=== PATIENT | female | born 1950 | race Caucasian/White ===

== ENCOUNTER 2018-11-23 08:00 | Observation (INO) | payer MEDICARE ==
[~2018-11-23] VITALS: Ht 167.6 cm; Wt 83.8 kg
[2018-11-23] MEDS ORDERED: normal saline 1000ML IV soln IVB ONE (08:15)
[2018-11-23] MEDS ORDERED: aspirin 81mg tab.chew PO ONE (08:15)
[2018-11-23] MEDS ORDERED: diltiazem 5mg/ml 5ml inj. IV ONE (08:20)
[2018-11-23 08:57] LABS: BASOPHILS # (AUTO) 0.1 X10'3 (0-0.2); BASOPHILS % (AUTO) 1.1 % (0-1); EOSINOPHILS # (AUTO) 0.1 X10'3 (0-0.9); EOSINOPHILS % (AUTO) 1.8 % (0-6); HEMATOCRIT 38.1 % (35.0-45.0); LYMPHOCYTES # (AUTO) 2.2 X10'3 (1.1-4.8); LYMPHOCYTES % (AUTO) 26.9 % (21-51); MEAN CORPUSCULAR HEMOGLOBIN 32.4 PG (27.0-31.0); MEAN CORPUSCULAR VOLUME 95.3 FL (78-98); MEAN PLATELET VOLUME 9.1 FL (7.4-10.4); MONOCYTES % (AUTO) 12.1 % (2-12); NEUTROPHILS # (AUTO) 4.8 X10'3 (1.8-7.7); NEUTROPHILS % (AUTO) 58.1 % (42-75); PLATELET COUNT 215 X10'3 (140-440); RED BLOOD COUNT 4.01 X10'6 (4.20-5.60); RED CELL DISTRIBUTION WIDTH 13.4 % (11.5-14.5); WHITE BLOOD COUNT 8.2 X10'3 (4.5-11.0)
[2018-11-23 09:07] LABS: ALANINE AMINOTRANSFERASE 70 U/L (12-78); ALBUMIN 3.5 G/DL (3.4-5.0); ALBUMIN/GLOBULIN RATIO 1.1 (1.1-1.5); ALKALINE PHOSPHATASE 72 IU/L (46-116); ANION GAP 8 (8-16); ASPARTATE AMINO TRANSFERASE 48 U/L (10-37); BILIRUBIN,TOTAL 0.4 MG/DL (0.1-1.0); BLOOD UREA NITROGEN 25 MG/DL (7-18); BUN/CREATININE RATIO 29.8 (6.6-38.0); CALCIUM 8.9 MG/DL (8.5-10.1); CHLORIDE 108 MMOL/L (99-107); CREATININE 0.84 MG/DL (0.40-0.90); GLUCOSE 104 MG/DL (70-104); POTASSIUM 3.6 MMOL/L (3.5-5.1); SODIUM 143 MMOL/L (135-145); TOTAL CARBON DIOXIDE 27.4 MMOL/L (24-32); TOTAL PROTEIN 6.8 G/DL (6.4-8.2); eGFR 67 ML/MIN
[2018-11-23] MEDS ORDERED: furosemide 10 MG/1 ML 10ml inj IV ONE (09:25)
[2018-11-23] MEDS ORDERED: potassium Cl 20 mEq SR tablet PO PRN ×2 (10:15)
[2018-11-23] MEDS: K and/or MAG REPLACEMENT MC SCH (10:15)
[2018-11-23] MEDS ORDERED: magnesium hydroxide 30ml (MOM) UD suspension PO PRN (10:15)
[2018-11-23] MEDS ORDERED: acetaminophen 325mg tablet PO PRN ×2 (10:15)
[2018-11-23] MEDS ORDERED: magnesium 4gm in 100ml NS 100 ML IV PRN (10:15)
[2018-11-23] MEDS ORDERED: ondansetron/PF 4mg/2ml inj IV PRN (10:15)
[2018-11-23] MEDS ORDERED: magnesium 2GM in 50ml NS 50 ML IV PRN (10:15)
[2018-11-23] MEDS ORDERED: magnesium Cl slow-release 64mg tablet PO PRN (10:15)
[2018-11-23] MEDS ORDERED: potassium Cl 40MEQ/NS 500ml 500 ML IV PRN ×2 (10:15)
[2018-11-23] MEDS ORDERED: HYDROcodone/acetaminophen 5mg/325mg tablet PO PRN (10:15)
[2018-11-23] MEDS ORDERED: mag hydrox/Alum hydrox/simeth 30ml oral suspension PO PRN (10:15)
[2018-11-23] MEDS ORDERED: NO HOME MEDS (12:25)
--- NOTE | 2018-11-23 15:37 | NUR ---
Patient arrived to room 3028A, via wheelchair and placed herself in bed. VS T: 97.5 HR 93 BP 112/90 RR 18 pain 0. Patient oriented to room and to call light. Will continue to monitor.
[2018-11-23] MEDS ORDERED: regadenoson 0.4mg/5ml syringe IV PRN (17:20)
[2018-11-23] MEDS ORDERED: aminophylline 250mg/10ml inj. IV PRN (17:20)
[2018-11-23] MEDS ORDERED: metoprolol tartrate 1mg/ml inj IV PRN (17:20)
[2018-11-23] MEDS ORDERED: nitroGLYCERIN 0.4mg SUBLingual tab SL PRN (17:20)
[2018-11-23 18:00] VITALS: BP 130/73
--- NOTE | 2018-11-23 18:00 | NUR ---
Patient in room PCU 3014. I have received report from Darby JEFFERS and had the opportunity to ask questions and assume patient care.
--- NOTE | 2018-11-23 18:22 | NUR ---
Problems reprioritized. Patient report given, questions answered & plan of care reviewed with Luz JEFFERS.
--- NOTE | 2018-11-23 18:23 | NUR ---
[place] documentation: I have reviewed and agree with all interventions, assessments performed and documented by Kailey JEFFERS. [place] Medication Administration: For this medication-pass time frame, all medication were reviewed, dispensed, administered and documented per hospital policy by Kailey JEFFERS.
[2018-11-23] MEDS ORDERED: temazepam 15mg capsule PO PRN (21:00)
[2018-11-23] MEDS: metoprolol tartrate 12.5mg (1/2 tablet) PO SCH (21:28)
[2018-11-23] MEDS: furosemide 20 MG/2 ML vial IV SCH (21:28)
[2018-11-23 22:00] VITALS: BP 126/67
[2018-11-24] VITALS (14 sets, daily range): BP systolic 99–132; BP diastolic 47–74
[2018-11-24 05:23] LABS: HEMATOCRIT 37.9 % (35.0-45.0); HEMOGLOBIN 12.6 g/dl (12.0-16.0); MEAN CORPUSCULAR HGB CONC 33.4 g/dL (33.0-36.5); MEAN CORPUSCULAR VOLUME 95.9 FL (78-98); MEAN PLATELET VOLUME 8.8 FL (7.4-10.4); PLATELET COUNT 205 X10'3 (140-440); RED BLOOD COUNT 3.95 X10'6 (4.20-5.60); RED CELL DISTRIBUTION WIDTH 13.7 % (11.5-14.5); WHITE BLOOD COUNT 7.7 X10'3 (4.5-11.0)
[2018-11-24 05:47] LABS: ALBUMIN 3.6 G/DL (3.4-5.0); ANION GAP 7 (8-16); BLOOD UREA NITROGEN 16 MG/DL (7-18); CALCIUM 9.1 MG/DL (8.5-10.1); CHLORIDE 104 MMOL/L (99-107); CHOL/HDL RATIO 2.4 (0.00-4.99); CHOLESTEROL 193 MG/DL (0-200); GLUCOSE 90 MG/DL (70-104); HDL CHOLESTEROL 81 MG/DL (35-60); LDL CHOLESTEROL 101 MG/DL (50-100); MAGNESIUM 1.8 MG/DL (1.5-2.4); PHOSPHORUS 4.9 MG/DL (2.3-4.5); POTASSIUM 3.6 MMOL/L (3.5-5.1); SODIUM 145 MMOL/L (135-145); TOTAL CARBON DIOXIDE 34.5 MMOL/L (24-32); TRIGLYCERIDES 61 MG/DL (20-135); eGFR 71 ML/MIN
[2018-11-24 05:58] LABS: PARTIAL THROMBOPLASTIN TIME 24 SECONDS (22-32)
--- NOTE | 2018-11-24 06:16 | NUR ---
Problems reprioritized. Patient report given, questions answered & plan of care reviewed with Darby JEFFERS.
--- NOTE | 2018-11-24 06:23 | NUR ---
Patient in room PCU 3014. I have received report from Luz JEFFERS and had the opportunity to ask questions and assume patient care. Patient asleep in bed and in no acute distress. Will continue to monitor.
[2018-11-24] MEDS: furosemide 20 MG/2 ML vial IV SCH (07:55)
[2018-11-24] MEDS: K and/or MAG REPLACEMENT MC SCH (08:00)
[2018-11-24] MEDS ORDERED: enoxaparin 40mg/0.4ml syringe SQ SCH (08:00)
[2018-11-24] MEDS ORDERED: regadenoson 0.4mg/5ml syringe IV ONE (09:21)
[2018-11-24] MEDS ORDERED: aminophylline inj. 10 ML IV ONE (09:21)
[2018-11-24] MEDS: metoprolol tartrate 12.5mg (1/2 tablet) PO SCH (10:59)
[2018-11-24] MEDS ORDERED: METO25TA6 PO (12:47)
[2018-11-24] MEDS ORDERED: ASPI81TA52 PO (12:47)
[2018-11-24] MEDS ORDERED: FURO-150 PO (12:47)
[2018-11-24] MEDS ORDERED: pneumococcal 23-VAL P-sac vacc 25 mcg/0.5ml vial IMVAC ONE (12:55)
--- NOTE | 2018-11-24 12:55 | NUR ---
New orders per Dr. Polo: Pneuovax prior to discharge.
--- NOTE | 2018-11-24 15:00 | NUR ---
Patient stable for discharger per MD orders. All discharge instructions reviewed with patient and all questions answered. Patient to follow up with Dr. Matthews in 7-10 days and follow up with Dr. Reyes in 1 week. New medications delivered via [facility]. PIV discontinued - cannula intact. Telemetry monitoring discontinued. All patient belongings and bedside delivery sent with patient in private vehicle to home. Patient wheeled to lobby by [facility].
== END 2018-11-24 15:03 | disposition home or self-care (01) ==
LOC: ER 08:01 → PCU 3S 15:42
PROVIDERS: ADMIT Family Medicine; ATTEND Family Medicine
DX: I50.9 Heart failure, unspecified (principal); I48.91 Unspecified atrial fibrillation; Z90.710 Acquired absence of both cervix and uterus; Z85.3 Personal history of malignant neoplasm of breast
CPT/HCPCS: 36415; 71045; 78452; 80048; 80053; 80061; 83735; 83880; 84100; 84443; 84484; 85025; 85027; 85610; 85730; 90471; 90732; 93005; 93017; 93306; 96372; 96374; 96375; 96376; 99284; A9500; G0378; J0280; J1940; J1650; J3490